=== PATIENT | male | born 1955 | race Caucasian/White ===

== ENCOUNTER → 2016-08-22 | Outpatient (CLI) | payer BC | LOC: FIMAGING 08:57 | PROVIDERS: ATTEND Family Medicine Sports Medicine | DX: R07.89 Other chest pain (principal); E78.5 Hyperlipidemia, unspecified; G60.3 Idiopathic progressive neuropathy ==

== ENCOUNTER 2016-09-01 11:35 | Observation (INO) | payer BC ==
[2016-09-01] MEDS ORDERED: ASPIRIN EC 325 MG TAB PO ONE (11:47)
[2016-09-01] MEDS ORDERED: diphenhydrAMINE 25 MG CAP PO ONE (11:47)
[2016-09-01] MEDS ORDERED: DIAZEPAM 5 MG TAB PO ONE (11:47)
[2016-09-01] MEDS ORDERED: FAMOTIDINE 20 MG TAB PO ONE (11:47)
[2016-09-01] MEDS ORDERED: NS 1,000 ML IV ONE (11:47)
--- NOTE | 2016-09-01 11:55 | CPEKG ---
Heart Rate: 64 RR Interval: 938 P-R Interval: 136 QRSD Interval: 132 QT Interval: 436 QTC Interval: 450 P Benedict: 69 QRS Benedict: 66 T Wave Benedict: 22 EKG Severity - ABNORMAL ECG - EKG Impression: SINUS RHYTHM EKG Impression: RIGHT BUNDLE BRANCH BLOCK EKG Impression: Agree with above Electronically Signed By: Unruly Castaneda 01-Sep-2016 15:03:15
[2016-09-01 12:16] LABS: % IMMATURE GRANULYOCYTES 0.3 % (0.0-1.1); ABSOLUTE IMMATURE GRANULOCYTES 0.02 10^3/uL (0.00-0.10); ADD DIFF? NO; ADD MORPH? NO; ADD SCAN? NO; ATYPICAL LYMPHOCYTE FLAG 10 (0-99); FRAGMENT RBC FLAG 0 (0-99); HEMATOCRIT 44.4 % (40.0-51.0); HEMOGLOBIN 14.9 g/dL (13.7-17.5); LEFT SHIFT FLG 0 (0-99); LIPEMIA HEMOLYSIS FLAG 80 (0-99); MEAN CELL HEMOGLOBIN 28.7 pg (27.9-34.1); MEAN CELL HEMOGLOBIN CONCENTR. 33.6 g/dL (32.4-36.7); MEAN CELL VOLUME 85.4 fL (81.5-99.8); MEAN PLATELET VOLUME 10.7 fL (8.7-11.7); PLATELET CLUMPS FLAG 0 (0-99); PLATELET COUNT 228 10^3/uL (150-400); RED CELL DISTRIBUTION WIDTH 13.9 % (11.5-15.2)
[2016-09-01 12:26] LABS: INR 1.01 (0.83-1.16); PROTIME(PATIENT) 13.2 SEC (12.0-15.0)
[2016-09-01 12:55] LABS: ANION GAP 9 mEq/L (8-16); CALCIUM 9.6 mg/dL (8.5-10.4); CARBON DIOXIDE 27 mEq/l (22-31); CHLORIDE 106 mEq/L (97-110); CHOLESTEROL 286 mg/dL (140-220); CHOLESTEROL/HDL RATIO 4.14 RATIO (1.00-4.97); CREATININE 1.1 mg/dL (0.7-1.3); GLOMERULAR FILTRATION RATE > 60; GLUCOSE 86 mg/dL (70-100); HIGH DENSITY LIPOPROTEIN 69 mg/dL (40-65); LDL/HDL RATIO 2.97 RATIO (1.00-3.64); LOW DENSITY LIPOPROTEIN 205 mg/dL (80-100); NON-HIGH DENSITY LIPOPROTEIN 217 mg/dL (90-129); POTASSIUM 4.9 mEq/L (3.5-5.2); SODIUM 142 mEq/L (134-144); TRIGLYCERIDE 61 mg/dL (40-150); VERY LOW DENSITY LIPOPROTEINS 12 mg/dL (8-25)
[2016-09-01] MEDS ORDERED: LIDOCAINE 1% 30 ML SDV ONE (14:02)
[2016-09-01] MEDS ORDERED: MIDAZOLAM 2 MG/2 ML VIAL ONE (14:03)
[2016-09-01] MEDS ORDERED: IOPAMIDOL (ISOVUE 370) 100 ML BTL IV ONE ×3 (14:03→15:34)
[2016-09-01] MEDS ORDERED: fentaNYL 100 MCG/2 ML INJ ONE (14:03)
--- NOTE | 2016-09-01 14:05 | GHP ---
[f rep st] HISTORY AND PHYSICAL DATE OF ADMISSION: 09/01/2016 CHIEF COMPLAINT: Chest pain. Abnormal nuclear stress test. HPI: This is a 61-year-old gentleman with no known history of coronary disease. He has had a famil y history of a father having early cardiovascular disease and he has a history of hyperlipidemia at one time on statin therapy. For the past 8 months, he has had intermittent right and left chest luana n, especially with exertion. There were no associated symptoms. It is never at rest. No palpitati ons or other issues. He has a known right bundle branch block. He has never been treated for hyper tension or diabetes mellitus. He has a history of peripheral neuropathy, inflammatory, has undergon e immunoglobulin therapy in the past. Today, he was at [facility] for an exercise stress test. He had very good exercise tolerance at 13 minutes [address]-T wave changes. Ho wever, his nuclear stress test showed abnormal anterior wall perfusion. Because of these findings, he was transferred to for cardiac catheterization. This is where I met him. He is comfo rtable, stable, doing well. His labs are pending at the time of this dictation, but he has had no k nown renal insufficiency. No allergies to iodine. Long discussion with him regarding the findings on the tests and his history. At this point, cardiac catheterization with possible PCI has been rec ommended. He understands the procedure, risks, benefits, complications, alternatives, and we will p timmy to progress later today. Consents have been signed. PAST MEDICAL HISTORY: Peripheral neuropathy. ALLERGIES: No known allergies. EXAM: VITAL SIGNS: Blood pressure was 122/68, pulse rate in the 70s in sinus. GENERAL: He is a m iddle-aged male, in no acute distress. HEENT: Negative. LUNGS: Clear. CARDIOVASCULAR: Regular rate and rhythm. Could not hear murmur, gallop, rub. ABDOMEN: Soft, nontender. MUSCULOSKELETAL: Without cyanosis, clubbing, or edema. Pulses are 2+ and symmetrical without carotid or femoral bru its. LABS: Pending but no history of known renal or liver issues. Cholesterol pending as well. ASSESSMENT: 1. A -ayqf-blk gentleman with an 8-month history of chest pain, exertional with some atyp ical features. However, he was placed on exercise stress test today showing very good exercise tole sheryl with significant ischemia in his anterior wall. He has agreed to cardiac catheterization and intervention as needed. The procedure, risks, benefits, complications, alternatives were discussed with him. He understands, accepts, and wishes to proceed. At this point, he is pain free and stabl e and comfortable. 2. History of peripheral neuropathy of an inflammatory nature, followed by Neurology. 3. History of family history of cardiovascular disease. 4. Further care depending on the results of his catheterization. /[id number]/MODL
[2016-09-01] MEDS ORDERED: BIVALIRUDIN 250 MG/5 ML VIAL IV ONE (14:44)
--- NOTE | 2016-09-01 15:02 | PDDXCAT ---
Diagnostic Cath Note - . Date: 09/01/16 Surgical Services Asst: Jorge A High-risk criteria on non-invasive testing: stress-induced large perfusion defect (particularly if anterior) - Procedure Access: right groin Procedure: left heart catheterization, coronary angiography, left ventriculogram - Materials Left Heart Cath size: 6F Left Heart Cath materials: standard multipack (JL4, JR4, pigtail) - Findings-Left Heart Catheterization LM: 1. normal LAD: 1. prox 30% and mid 30%..there appears to be an occluded 1st diagonal with some distal collateral flow LCX: 1. dominamt vessel with iom with 30% prox lesion RCA: 1. non domainant rca with prox 75% lesion EDP: 20-25 mmhg LVEF: no rwma and lvef of 65% Complications: none Estimated blood loss: <50ml Assessment: 1. suboccluded 1st diagonal branch which coresponds to nuclear defect...prox nondominant rca prox stenosis of 75%. 2. moderate iom disease and mild lad stenosis. 3.normal lvef Plan: 1. intervention consult with dr llamas to assess pci options
[2016-09-01] MEDS ORDERED: CLOPIDOGREL BISULFATE 75 MG TAB ONE (15:26)
[2016-09-01] MEDS ORDERED: CLOPIDOGREL BISULFATE 75 MG TAB PO ONE (15:48)
[2016-09-01] MEDS ORDERED: LORazepam 2 MG/ML INJ IVP PRN (15:48)
[2016-09-01] MEDS ORDERED: TEMAZEPAM 15 MG CAP PO PRN (15:48)
[2016-09-01] MEDS ORDERED: ATROPINE SULFATE 1 MG/10 ML SYR IVP PRN (15:48)
[2016-09-01] MEDS ORDERED: ONDANSETRON 4 MG/2 ML VIAL IVP PRN (15:48)
[2016-09-01] MEDS ORDERED: NITROGLYCERIN 0.4 MG BTL SL PRN (15:48)
--- NOTE | 2016-09-01 16:23 | CPEKG ---
Heart Rate: 66 RR Interval: 909 P-R Interval: 140 QRSD Interval: 130 QT Interval: 456 QTC Interval: 478 P [place]: 65 QRS [place]: 66 T Wave [place]: 6 EKG Severity - ABNORMAL ECG - EKG Impression: SINUS RHYTHM EKG Impression: RIGHT BUNDLE BRANCH BLOCK EKG Impression: Agree with above. No significant change from September 01, 2016, 11:54 Electronically Signed By: Unruly Castaneda 01-Sep-2016 16:33:07
--- NOTE | 2016-09-01 16:41 | PDCTREPORT ---
Cardiothoracic Procedure Rpt Cardiothoracic Procedure Report: Procedure: PCI and stenting of chronically occluded principal diagonal. PCI and stenting of the right coronary artery. After reviewing diagnostic angiogram performed by my partner Dr. Emanuel Jules in reviewing nuclear stress test showing large area of lateral ischemia it was elected to proceed with PCI. Using a 6 Icelandic Q 3.75 guide the left main coronary was selectively intubated. Using a 0.014 luge wire tempted crossing chronically occluded diagonal were made but failed despite backup with a 2 mm balloon. Attempts were made using a 0.014 transport pilot 150 wire. After obtaining support from the 2 mm balloon the wire passed into the distal vessel. Overlapping inflations were performed with a 2 mm balloon re-establishing antegrade flow. His like to proceed with stenting at 2.25 x 24 mm synergy stent was placed on the wire and placed across the lesion. Was deployed in the single inflation. Repeat angiograms revealed ROWENA grade 3 flow to the end of the lateral wall. Our attention was then turned to the right coronary artery. Therapeutic ACT was confirmed. Using a 6 Icelandic JR4 guide the right coronary was selectively intubated. Using the 0.014 transport pilot 150 wire the RCA stenosis was crossed. It was pre-dilated with a 2 mm balloon. A 2.5 x 12 mm synergy stent was placed on the wire but would not cross. The lesion was again pre-dilated with a 2.5 x 12 mm balloon. Stent easily crossed and was deployed using a single inflation. Final orthogonal angiogram showed ROWENA grade 3 flow with no residual stenosis. Conclusions: Successful PCI and stenting of the chronically occluded principal diagonal. Successful PCI and stenting of the right coronary artery. Patient be admitted overnight aggressive secondary prevention with beta gautam , Joseph inhibitor, statin therapy goal LDL cholesterol less than 70 mg/dL.
[2016-09-01] MEDS: METOPROLOL SUCCINATE XR 25 MG TAB PO SCH (18:55)
[2016-09-01] MEDS: LISINOPRIL 2.5 MG TAB PO SCH (18:55)
[2016-09-01] MEDS: ATORVASTATIN CALCIUM 20 MG TAB PO SCH (18:56)
[2016-09-02 04:38] LABS: % IMMATURE GRANULYOCYTES 0.4 % (0.0-1.1); ABSOLUTE IMMATURE GRANULOCYTES 0.03 10^3/uL (0.00-0.10); ADD DIFF? NO; ADD MORPH? NO; ADD SCAN? NO; ATYPICAL LYMPHOCYTE FLAG 20 (0-99); FRAGMENT RBC FLAG 0 (0-99); HEMOGLOBIN 13.8 g/dL (13.7-17.5); LEFT SHIFT FLG 0 (0-99); LIPEMIA HEMOLYSIS FLAG 80 (0-99); MEAN CELL HEMOGLOBIN 28.8 pg (27.9-34.1); MEAN CELL HEMOGLOBIN CONCENTR. 32.9 g/dL (32.4-36.7); MEAN CELL VOLUME 87.7 fL (81.5-99.8); PLATELET CLUMPS FLAG 0 (0-99); PLATELET COUNT 218 10^3/uL (150-400); RED BLOOD CELL COUNT 4.79 10^6/uL (4.40-6.38); RED CELL DISTRIBUTION WIDTH 14.1 % (11.5-15.2)
[2016-09-02 04:52] LABS: ALBUMIN 3.8 g/dL (3.5-5.0)
[2016-09-02 04:54] LABS: ANION GAP 9 mEq/L (8-16); ASPARTATE AMINOTRANSFERASE 49 IU/L (17-59); CALCIUM 9.2 mg/dL (8.5-10.4); CARBON DIOXIDE 23 mEq/l (22-31); CHLORIDE 104 mEq/L (97-110); CREATININE 1.3 mg/dL (0.7-1.3); GLOMERULAR FILTRATION RATE 56; GLUCOSE 82 mg/dL (70-100); LACTATE DEHYDROGENASE 576 IU/L (313-618); POTASSIUM 4.2 mEq/L (3.5-5.2); SODIUM 136 mEq/L (134-144)
[2016-09-02 07:33] VITALS: BP 107/64; PULSE 65; RESP 20; TEMP 98.1; O2SAT 93
[2016-09-02] MEDS: METOPROLOL SUCCINATE XR 25 MG TAB PO SCH (08:47)
[2016-09-02] MEDS: LISINOPRIL 2.5 MG TAB PO SCH (08:47)
[2016-09-02] MEDS: ATORVASTATIN CALCIUM 20 MG TAB PO SCH (08:48)
[2016-09-02] MEDS ORDERED: ASPIRIN EC 325 MG TAB PO SCH (09:00)
[2016-09-02] MEDS ORDERED: CLOPIDOGREL BISULFATE 75 MG TAB PO SCH (09:00)
--- NOTE | 2016-09-02 09:12 | CPEKG ---
Heart Rate: 65 RR Interval: 923 P-R Interval: 132 QRSD Interval: 124 QT Interval: 444 QTC Interval: 462 P [place]: 70 QRS [place]: 83 T Wave [place]: 37 EKG Severity - ABNORMAL ECG - EKG Impression: SINUS RHYTHM EKG Impression: RBBB AND LPFB EKG Impression: No significant change from September 01, 2016 Electronically Signed By: Unruly Castaneda 02-Sep-2016 12:51:39
--- NOTE | 2016-09-02 12:27 | GDS ---
[f rep st] DISCHARGE SUMMARY DISCHARGE DIAGNOSES: 1. CCS class 3 angina, status post PTCA and stenting to the chronically occluded principal diagonal with a 2.25 x 24 Synergy stent, PTCA and stenting to nondominant RCA due to proximal stenosis of 75% with a 2.5 x 12 mm Synergy stent. 2. History of known severe dyslipidemia, not on statins in the past few years. 3. Idiopathic neuropathy. PROCEDURES: 1. 09/01/2016 diagnostic cardiac catheterization, which found a normal left main, proximal 30% and mid 30% lesions in the LAD. There was a chronic occluded first diagonal with some distal collateral flow. Dominant left circumflex OM with a 30% proximal lesion, nondominant RCA with a 75% lesion in the proximal segment, LVEDP of 20-25 mmHg, LVEF of 65%. 2. Interventional cardiac stenting to principal diagonal and RCA. BRIEF HISTORY: Please see dictated H and P for complete details. In brief, the patient is a 61-year-old male with known dyslipidemia who has not been on statin therapy for several years now. Over the past several months, he has been having a pretty stressful life situation with divorce and minimal custody of his son. He has been exercising and within a few minutes has been starting to note midsternal chest pressure which would radiate through his chest. This would cause him to need to stop exercising. At first he thought it was related to the IVIG treatments that he was receiving for his peripheral neuropathy. He also noted possible stroke-like symptoms with the IVIG treatments and therefore ceased treatment after 3 doses. Despite cessation, he continued to note the chest pressure symptoms. Additionally, he started to treat his peripheral neuropathy with a dietitian, who recommended a pretty aggressive form of a Paleo diet which included nearly a pound of green[place] per day and use of lard for cooking. He denies any rest pain. He has not been noting any PND, orthopnea, palpitations, presyncope, or syncope. HOSPITAL COURSE: 1. CCS class 3 anginal symptoms. He is status post PTCA and stenting to principal LAD diagonal and proximal RCA vessel. We reviewed the importance of dual antiplatelet therapy for 1 year. 2. CAD. We discussed he has pretty severe CAD. He was advised to start statin therapy for secondary prevention. Additionally, we have added metoprolol at this point. 3. Dyslipidemia. His LDL is severely elevated at 205. His total cholesterol is 286, triglycerides 61, HDL 69. He has started atorvastatin 20 mg p.o. daily. PHYSICAL EXAM: VITAL SIGNS: On day of discharge, blood pressure of 107/64, heart rate 65, respirations 20, O2 saturation 93% on room air, temp of 98.1 degrees Fahrenheit. GENERAL: He is a very pleasant man in no apparent distress. EYES: GIOVANNA without scleral icterus. HEART: Regular rate and rhythm. LUNGS: Clear. ABDOMEN: Right groin site without bruit or edema present. There are 2+ PT and DP pulses bilaterally. Telemetry has shown sinus rhythm. RESULTS PENDING: None. DIET: Cardiac. DISCHARGE MEDICATIONS: Please see medication reconciliation for complete details. He is being discharged on his home [place]. He has been started on clopidogrel, atorvastatin, and metoprolol succinate. FOLLOWUP INSTRUCTIONS: 1. Follow up with cardiac rehab. 2. Follow up in clinic in 2 weeks' time. Cosigner: Dr. Emanuel Jules /[id number]/MODL MTDD
== END 2016-09-02 10:17 | disposition home or self-care (01) ==
LOC: FCATH 11:35 → F2W 15:48
PROVIDERS: ADMIT Internal Medicine Interventional Cardiology; ATTEND Internal Medicine Interventional Cardiology
DX: I25.119 Atherosclerotic heart disease of native coronary artery with unspecified angina pectoris (principal); I25.82 Chronic total occlusion of coronary artery; E78.5 Hyperlipidemia, unspecified; R94.39 Abnormal result of other cardiovascular function study; I45.10 Unspecified right bundle-branch block; G60.9 Hereditary and idiopathic neuropathy, unspecified; Z82.49 Family history of ischemic heart disease and other diseases of the circulatory system
CPT/HCPCS: 92928; 92943; 93005; 93458; C1725; C1769; C1887; G0378; C1760; C1874; C9600; C9607; J0583; J1644; J2250; J3010; Q9967

== ENCOUNTER → 2016-09-12 | Outpatient (CLI) | payer BC | LOC: CIMAGING 14:41 | PROVIDERS: ATTEND Family Medicine Sports Medicine | DX: R07.89 Other chest pain (principal); R93.7 Abnormal findings on diagnostic imaging of other parts of musculoskeletal system; J47.9 Bronchiectasis, uncomplicated; Z95.5 Presence of coronary angioplasty implant and graft | CPT/HCPCS: 71250-PO ==